=== PATIENT | male | born 1970 | race Caucasian/White ===

== ENCOUNTER 2019-02-26 10:12 | Inpatient (IN) ==
--- NOTE | 2019-02-26 10:58 | Emergency Department Note ---
ED Disposition Clinical Impression: Acute bronchitis, Cough, Unifocal PVCs, Bilateral pneumonia, Cholelithiasis Disposition: Still a Patient Condition on Discharge: Fair Referrals: Rakan Fraser [Primary Care Provider] - - Critical Care Critical Care Time: No Attestation: On 02/26/19, the high probability of a clinically significant, sudden or life threatening deterioration of the following system(s) required my full and direct attention, intervention and personal management. The time I documented below is in addition to time spent performing reported procedures but includes the following listed in this critical care notation. Medical Decision Making - Kevon Inquiry Pt receiving controlled substance: No Kevon was queried for this patient: No Vital Signs: 02/26/19 10:23 02/26/19 10:43 02/26/19 11:43 Temperature 99.3 F Temperature Source Oral Pulse Rate [Left Radial] 96 H 87 94 H Respiratory Rate 18 16 18 Blood Pressure [Right Arm] 139/84 138/82 145/76 H Blood Pressure Mean [Right Arm] 102 100 99 Blood Pressure Source [Right Arm] Automatic Cuff Automatic Cuff Automatic Cuff Blood Pressure Position [Right Arm] Sitting Sitting Sitting 02 Sat by Pulse Oximetry 94 L 93 L 94 L Oxygen Delivery Method Room Air Room Air Room Air 02/26/19 12:30 Temperature Temperature Source Pulse Rate [Left Radial] 93 H Respiratory Rate 18 Blood Pressure [Right Arm] 110/68 Blood Pressure Mean [Right Arm] 82 Blood Pressure Source [Right Arm] Automatic Cuff Blood Pressure Position [Right Arm] Sitting 02 Sat by Pulse Oximetry 94 L Oxygen Delivery Method Room Air - Lab Data Lab Results 02/26/19 10:44: WBC 11.8 H D, RBC 5.29, Hgb 15.4, Hct 48.7, MCV 92.0, MCH 29.1, MCHC 31.7 L, RDW 13.0, Plt Count 199, MPV 8.1, Neut % (Auto) 82.6 H, Lymph % (Auto) 8.6 L, [place] % (Auto) 8.1, Eos % (Auto) 0.6, Baso % (Auto) 0.1, Neut # (Auto) 9.8 H, Lymph # (Auto) 1.0, [place] # (Auto) 1.0, Eos # (Auto) 0.1, Baso # (Auto) 0.0 02/26/19 10:44: Sodium 140, Potassium 3.9, Chloride 104, Carbon Dioxide 27, Anion Gap 12.9, BUN 19 H, Creatinine 1.06, Estimated Creat Clear 83, Estimated GFR 74, Est GFR ( Amer) 89, Glucose 118 H, Calcium 8.3 L, Total Bilirubin 0.4, AST 30, ALT 55, Alkaline Phosphatase 71, Troponin I < 0.02, Total Protein 7.3, Albumin 3.6, Globulin 3.7 H, Albumin/Globulin Ratio 1.0 L 02/26/19 10:44: Magnesium 2.1 Result diagrams: 02/26/19 10:44 02/26/19 10:44 Orders (Tests/Meds): ED MEDICATIONS Generic Name Dose Route Start Last Admin Trade Name Freq PRN Reason Stop Dose Admin Levofloxacin/Dextrose 750 mg in 150 mls @ 100 mls/hr 02/26/19 12:30 Levofloxacin 750mg/150ml Premix IV 03/12/19 12:29 Q24H YVON Protocol Discontinued Medications Generic Name Dose Route Start Last Admin Trade Name Freq PRN Reason Stop Dose Admin Diatrizoate Meglum/Diatrizoate Sod 30 ml 02/26/19 10:54 02/26/19 11:03 Gastrografin 66%-10% 30ml PO 02/26/19 10:55 30 ml ONCE ONE Administration Ioversol 70 ml 02/26/19 11:52 02/26/19 11:53 Rad-Optiray 350 100ml Vial IV 02/26/19 11:53 70 ml ONCE ONE Administration Protocol Sodium Chloride 10 ml 02/26/19 11:52 02/26/19 11:52 Rad-Saline Flush 10ml Syringe IV 02/26/19 11:53 10 ml ONCE ONE Administration Sodium Chloride 50 ml 02/26/19 11:52 02/26/19 11:52 Rad-Ns 50ml Vial IV 02/26/19 11:53 50 ml ONCE ONE Administration ORDERS Category Date Time Status Lactic Acid Stat Lab 02/26/19 12:24 Ordered Blood Culture Stat Micro 02/26/19 12:24 Ordered - Radiology Data #1 Image Reviewed: Yes I discussed the image results w/the radiologist, Yes I have reviewed radiologist's interpretation Preliminary Findings: Abnormal Chest CT scan report below. IMPRESSION: 1. Bilateral lower lobe pneumonia. 2. Cholelithiasis. 3. No evidence of pulmonary embolus or aortic aneurysm - CT Data CT Scan: Abdomen, Pelvis, Chest Time Received: 12:[address] Reviewed: Yes: I discussed the CT results w/the radiologist, I have viewed the radiologist's interpretation Preliminary Findings: Abnormal Findings Narrative: Ct of the chest IMPRESSION: 1. Bilateral lower lobe pneumonia. 2. Cholelithiasis. 3. No evidence of pulmonary embolus or aortic aneurysm CT abdomen and pelvis: IMPRESSION: 1. Bilateral lower lobe pneumonia. 2. Cholelithiasis with fatty liver. 3. Small umbilical and left hernias containing fat - ECG Data Tracing #1 Normal sinus rhythm 86/min baseline artifact unifocal PVCs no acute ST segment or T wave changes. ECG initial impression date: 02/26/19 ECG initial impression time: 10:35 Medical Decision Narrative: The patient underwent a CT scan of the chest and abdomen was positive bilateral pneumonia and cholelithiasis. Will obtain blood cultures lactic acid and started IV antibiotics. 1230 I discussed the case with Dr. Joy who agreed to admit the patient. She requested a gallbladder ultrasound in a.m. Abdominal Pain HPI - General Chief Complaint: Shortness of Breath/Dyspnea Stated Complaint: Cough/Pain Time Seen by Provider: 02/26/19 10:30 Mode of Arrival: Ambulatory Limitations: No Limitations Description of Symptoms (Recalled from ER Triage Doc. by RN): to ed per pvt car pt states seen 7/4 for cough and "pulled something when coughing" dx with bronchitis given antibiotics. pt states he thinks he pulled something again while coughing now c/o burning type chest pain radiating to rt rib area and around to back. cpta antibiotics - History of Present Illness HPI narrative: 48 years old white male with no past medical history who developed coughing spells 2 days ago, the patient felt a pop in the right upper quadrant and developed sudden onset of sharp pain that is rated 6/10 without shortness of breath or hemoptysis. He was seen in the emergency room obtained labs and blood work that were within normal limit was discharged with diagnosis of bronchitis. The patient developed progressive epigastric burning sensation that is rated 10/10 worse with position, movement and activity. The patient denies having hemoptysis hematemesis coffee-ground emesis melanotic stool or bleeding per rectum. The patient continues to deny having shortness of air or hemoptysis. The patient denies having fever chills flank pain dysuria or hematuria. MD complaint: abdominal pain Onset (ago): hour(s) Consistency: constant Location: RUQ, epigastric Severity: severe Severity scale (1-10): 10 Quality: burning Radiation: none Relieving factors: rest Exacerbating factors: movement, other (Cough. ) Associated symptoms: denies other symptoms - Related Data Home Medications Medication Instructions Recorded Confirmed Benzonatate [Tessalon Perle 100mg 100 mg PO TID 02/26/19 02/26/19 Cap] levoFLOXacin [Levaquin 500mg 500 mg PO DAILY 02/26/19 02/26/19 tab] predniSONE [Prednisone 20mg 20 mg PO BID 02/26/19 02/26/19 Tab] Allergies Allergy/AdvReac Type Severity Reaction Status Date / Time No Known Allergies Allergy Verified 02/24/19 23:32 [facility] History - Hepatitis A Screen Drug use history?: No High risk sexual behaviors?: No History of sexually transmitted infection?: No Currently employed?: No Childcare worker?: No Do you have indoor plumbing?: Yes Do you have electricity?: Yes Attestation statement:: This patient has been screened for Hepatitis A risk factors. I have reviewed the patient's past medical history: Yes (ACL repair. ) - Social History Alcohol Intake: never Occupational Status: employed ROS Obtained: Yes All systems reviewed & no additional complaints Physical Exam - General General appearance: alert, in no apparent distress - Head Head exam: atraumatic, normocephalic, normal inspection - Eye Eye exam: Present: normal appearance, PERRL, EOMI. Absent: scleral icterus, nystagmus - ENT ENT exam: Present: normal exam, normal oropharynx, mucous membranes moist, TM's normal bilaterally, normal external ear exam - Neck Neck exam: Present: normal inspection, full ROM, trachea midline. Absent: tenderness, meningismus, lymphadenopathy - Chest Chest inspection: Present: normal inspection, symmetric chest wall rise, tendern ess, other (Area of maximum tenderness over right costal margin at the left anterior axillary line) - Respiratory Respiratory exam: Present: normal lung sounds bilaterally. Absent: respiratory distress, wheezes - Cardiovascular Cardiovascular exam: Present: regular rate, normal rhythm, normal heart sounds. Absent: JVD - Abdominal Exam Abdominal exam: Present: soft, tenderness, normal bowel sounds, other (Obese soft abdomen with umbilical omentocele. The area of maximum tenderness over the epigastrium and right upper quadrant with no rebound no cross tenderness no). Absent: distention, guarding, rebound, rigidity, Saunders's sign, tenderness at McBurney's Point - exam: Present: normal inspection, normal testicular lie, circumcised, other (No pulsating masses equal bilateral femoral pulsations.). Absent: testicular tenderness, urethral discharge, scrotal swelling - Extremities Exam Extremities exam: Present: normal inspection, full ROM, tenderness, normal capillary refill, pedal edema, joint swelling. Absent: calf tenderness - Back Exam Back exam: Present: normal inspection, CVA tenderness (R), CVA tenderness (L). Absent: tenderness - Neurological Exam Neurological exam: Present: alert, oriented X3, CN II-XII intact, motor sensory deficit, reflexes normal - Psychiatric Psychiatric exam: Present: normal affect, normal mood - Skin Skin exam: Present: warm, dry, intact, normal color - Lymphatic Lymphatic Findings: no adenopathy
[2019-02-26 11:01] LABS: Basophils % 0.1 % (0.1-2.0); Eosinophils # 0.1 K/mm3 (0.0-0.4); Eosinophils % 0.6 % (0.1-12.0); Hematocrit 48.7 % (42.0-52.0); Hemoglobin 15.4 g/dL (14.1-18.0); Lymphocytes % 8.6 % (10-50); Mean Corpuscular HGB Conc 31.7 g/dL (31.8-35.4); Mean Platelet Volume 8.1 fl (7.4-10.4); Monocytes % 8.1 % (1.7-9.3); Neutrophils # 9.8 K/mm3 (1.8-7.8); Neutrophils % 82.6 % (37.0-80.0); Platelet Count 199 K/mm3 (142-424); Red Blood Count 5.29 M/mm3 (4.60-6.20); White Blood Count 11.8 K/mm3 (4.8-10.8)
[2019-02-26 11:13] LABS: Alanine Aminotransferase 55 U/L (12-78); Albumin Level 3.6 gm/dL (3.4-5.0); Alkaline Phosphatase 71 U/L (46-116); Anion Gap 12.9 mEq/L (5-15); Aspartate Amino Transferase 30 U/L (15-37); Bilirubin,Total 0.4 mg/dL (0.2-1.0); Blood Urea Nitrogen 19 mg/dL (7-18); Calcium 8.3 mg/dL (8.5-10.1); Carbon Dioxide 27 mmol/L (21.0-32.0); Chloride 104 mmol/L (98-107); Globulin 3.7 gm/dl (1.3-3.2); Glucose 118 mg/dL (74-106); Sodium 140 mmol/L (136-145); Total Protein,Serum 7.3 gm/dL (6.4-8.2)
--- NOTE | 2019-02-26 14:38 | Pharmacy Consult Notes ---
[facility] Pharmacy VTE Monitoring - Patient Demographics Admission date: 02/26/19 Report Date: 02/26/19 Time: 14:38 Allergies/Adverse Reactions: Patient Allergies No Known Allergies Allergy (Verified 02/24/19 23:32) Height: 1.75 m Weight: 127.006 kg Patient Problems: Current Active Problems (Updated 02/26/19 @ 12:23 by Casey Aguilera MD) Acute bronchitis (Acute) Cough (Acute) Unifocal PVCs (Acute) Bilateral pneumonia (Acute) Cholelithiasis (Acute) - VTE Risk Labs: VTE Related Lab Results Hgb 15.4 g/dL (14.1-18.0) 02/26/19 10:44 Hct 48.7 % (42.0-52.0) 02/26/19 10:44 Plt Count 199 K/mm3 (142-424) 02/26/19 10:44 BUN 19 mg/dL (7-18) H 02/26/19 10:44 Creatinine 1.06 mg/dL (0.70-1.30) 02/26/19 10:44 Estimated Creat Clear 83 mL/min (50-200) 02/26/19 10:44 Was VTE Risk Assessment Performed: Yes VTE Score: 3 VTE Risk Level: Low Risk - Prophylaxis VTE Prophylaxis Ordered?: Yes Types of VTE Prophylaxis: TEDS Knee High Location of Applied Device: Bilateral Lower Extremeties
[2019-02-27 06:57] LABS: Basophils % 0.4 % (0.1-2.0); Eosinophils % 0.2 % (0.1-12.0); Hematocrit 44.4 % (42.0-52.0); Hemoglobin 14.2 g/dL (14.1-18.0); Lymphocytes # 1.5 K/mm3 (0.7-4.5); Lymphocytes % 20.2 % (10-50); Mean Corpuscular Volume 91.2 fl (80-94); Mean Platelet Volume 7.8 fl (7.4-10.4); Monocytes # 0.7 K/mm3 (0.1-1.0); Monocytes % 9.1 % (1.7-9.3); Neutrophils # 5.3 K/mm3 (1.8-7.8); Neutrophils % 70.1 % (37.0-80.0); Platelet Count 172 K/mm3 (142-424); Red Blood Count 4.87 M/mm3 (4.60-6.20); Red Cell Distribution Width 13.2 % (11.5-17.5); White Blood Count 7.5 K/mm3 (4.8-10.8)
[2019-02-27 07:03] LABS: Anion Gap 10.2 mEq/L (5-15)
--- NOTE | 2019-02-27 12:16 | History & Physical Report ---
*Admission Date: 02/26/19 *Chief complaint: Difficulty breathing and pleuritic pain in chest *History of present illness: Patient is a 48-year-old male who presented to our ED with some pleuritic pain and chest. He denies having any sputum production. He was also complaining of some epigastric and lower thoracic pain that comes and goes. Denies having fever, chills, nausea, vomiting, diarrhea. Work-up in the ED showed bilateral pneumonia and gallstones. Ultrasound was ordered to rule out any stones in the common bile duct or pancreatic duct. He was started on antibiotic treatment for bilateral pneumonia. Today during rounds, he seemed to be doing slightly better. He complained that the neb treatments are making him dizzy. [facility] History I have reviewed the patient's past medical history: Yes 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: Denies:: Cancer, Diabetes Mellitus Type 1, Diabetes Mellitus Type 2, Internal Pacemaker, MRSA *Have you ever received a pneumonia vaccine?: Yes *Have you received a flu vaccine this season?: Yes Laterality Cases: Left: ACL Repair Other Surgeries: No: Pacemaker Amputation: No Fractures: No - *Social History Educational Level: Completed College Smoking Status: Never smoker Alcohol Intake: never *Occupational Status:: employed Housing: house Household Members: spouse *Travel in the last 8 weeks: None - Psychiatric History Expresses thoughts of harming self/others: None Suicide Plan Description: No Plan Family Hx:: Diabetes, Hyperlipidemia, Hypertension Review of Systems - Constitutional Reports lack of energy, Reports weakness - Eyes Denies change in vision - ENT Denies change in voice, Denies difficulty swallowing - *Cardiovascular Denies chest pain, Denies chest pain at rest, Denies chest pain with activity, Denies shortness of breath - *Respiratory Reports chest congestion, Reports cough, Denies shortness of breath - *Gastrointestinal Denies bloating, Denies change in bowel habits Comments: Mild epigastric pain - *Genitourinary Denies difficulty with ejaculations - *Musculoskeletal Denies joint pain, Denies decreased muscle mass - Integumentary/Breasts Denies bleeding lesions - *Neurologic Denies abnormal hearing - Psychiatric Denies lack of enjoyment, Denies anxiety, Denies depression - Allergic/Immunologic Denies itchy eyes Meds Home Medications Medication Instructions Recorded Confirmed Type Benzonatate [Tessalon Perle 100mg 100 mg PO TID 02/26/19 02/26/19 History Cap] levoFLOXacin [Levaquin 500mg 500 mg PO DAILY 02/26/19 02/26/19 History tab] predniSONE [Prednisone 20mg 20 mg PO BID 02/26/19 02/26/19 History Tab] Allergies Allergy/AdvReac Type Severity Reaction Status Date / Time No Known Allergies Allergy Verified 02/24/19 23:32 Exam Vital signs and Labs for Last 24 Hours: Temp Pulse Resp BP Pulse Ox 98.9 F 72 19 115/63 94 L 02/27/19 08:00 02/27/19 08:00 02/27/19 08:00 02/27/19 08:00 02/27/19 08:40 Laboratory Results - last 24 hr 02/26/19 12:45: Lactate 1.0 02/26/19 15:55: Troponin I < 0.02 02/26/19 22:00: Troponin I < 0.02 02/27/19 06:33: WBC 7.5 D, RBC 4.87, Hgb 14.2, Hct 44.4, MCV 91.2, MCH 29.2, MCHC 32.0, RDW 13.2, Plt Count 172, MPV 7.8, Neut % (Auto) 70.1, Lymph % (Auto) 20.2, [place] % (Auto) 9.1, Eos % (Auto) 0.2, Baso % (Auto) 0.4, Neut # (Auto) 5.3, Lymph # (Auto) 1.5, [place] # (Auto) 0.7, Eos # (Auto) 0.0, Baso # (Auto) 0.0 02/27/19 06:33: Sodium 138, Potassium 3.2 L, Chloride 102, Carbon Dioxide 29, Anion Gap 10.2, BUN 18, Creatinine 1.05, Estimated Creat Clear 84, Estimated GFR 75, Est GFR ( Amer) 90, Glucose 114 H, Calcium 8.0 L I & O for Last 24 hours: Intake & Output 02/25/19 02/26/19 02/27/19 02/28/19 11:59 11:59 11:59 11:59 Intake Total 1558 / 1558 Balance 1558 / 1558 Weight 280 lb 287 lb 0.67 oz Microbiology Reports for the Last 24 Hours: Microbiology 02/26/19 17:10 Sputum - Expectorated Sputum Gram Stain - Final - *Routine HEENT Exam Head: Present: normocephalic Eye: Present: EOMI, PERRL ENT: Present: mucous membranes moist - *Routine Neck Exam Present: supple. Absent: lymphadenopathy - *Routine Respiratory Exam Present: wheezes Comments: Diffuse and bilateral - *Routine Cardiovascular Exam Present: RRR - *Routine Abdominal Exam Present: soft, normoactive bowel sounds. Absent: tenderness - *Routine Extremities Exam Absent: cyanosis, clubbing, edema - *Routine Skin Exam Present: warm. Absent: rash - *Routine Neurological Exam Present: alert, oriented X3 Assessment and Plan (1) Bilateral pneumonia Current visit: Yes Status: Acute Category: Medical Code(s): J18.9 - Pneumonia, unspecified organism (2) Acute bronchitis Current visit: Yes Status: Acute Category: Medical Code(s): J20.9 - Acute bronchitis, unspecified (3) Cholelithiasis Current visit: Yes Status: Acute Category: Medical Code(s): K80.20 - Calculus of gallbladder without cholecystitis without obstruction - Assessment and plan all Dx Assessment and Plan for all problems:: Evaluate gallstones are outpatient. Explained that given his pneumonia he is not a good candidate for any surgery at this time. He voiced understanding. We will continue IV antibiotics for his bilateral pneumonia. Await blood cultures. Possible discharge tomorrow or Thursday.
--- NOTE | 2019-02-28 08:26 | Progress Note ---
<Akanksha Aguirre - Last Filed: 02/28/19 08:23> Internal Medicine - PN: Subj *Date: 02/28/19 *Time: 08:23 Interval history: States he is better today. Denies shortness of breath. He has minimal cough. He states pain is much improved. He is eating without difficulty. He is voiding QS. He ambulates in the room without problems. Pending cultures Exam Vital signs and Labs for Last 24 Hours: Temp Pulse Resp BP Pulse Ox 98.1 F 91 H 17 121/68 93 L 02/28/19 07:57 02/28/19 07:57 02/28/19 07:57 02/28/19 07:57 02/28/19 07:57 I & O for Last 24 hours: Intake & Output 02/25/19 02/26/19 02/27/19 02/28/19 11:59 11:59 11:59 11:59 Intake Total 1558 / 1558 1930 Balance 1558 / 1558 1930 Weight 280 lb 287 lb 0.67 oz 280 lb 3 oz Microbiology Reports for the Last 24 Hours: Microbiology 02/26/19 17:10 Sputum - Expectorated Sputum Gram Stain - Final 02/26/19 17:10 Sputum - Expectorated Sputum Sputum Culture - Preliminary - Constitutional no acute distress Comments: Sitting in chair in the room and appears very comfortable. - *Routine Respiratory Exam Comments: Bilateral crackles - *Routine Cardiovascular Exam Present: RRR - *Routine Abdominal Exam Present: soft, normoactive bowel sounds. Absent: tenderness, distended - *Routine Extremities Exam Absent: edema, calf tenderness - *Routine Neurological Exam Present: alert, oriented X3 Assessment and Plan (1) Bilateral pneumonia Current visit: Yes Status: Acute Category: Medical Code(s): J18.9 - Pneumonia, unspecified organism (2) Acute bronchitis Current visit: Yes Status: Acute Category: Medical Code(s): J20.9 - Acute bronchitis, unspecified (3) Cholelithiasis Current visit: Yes Status: Acute Category: Medical Code(s): K80.20 - Calculus of gallbladder without cholecystitis without obstruction - Assessment and plan all Dx Assessment and Plan for all problems:: Continue with current care. <Cecy Joy - Last Filed: 02/28/19 09:41> Internal Medicine - PN: Subj *Date: 02/28/19 *Time: 09:41 Exam Vital signs and Labs for Last 24 Hours: Temp Pulse Resp BP Pulse Ox 98.1 F 91 H 17 121/68 93 L 02/28/19 07:57 02/28/19 07:57 02/28/19 07:57 02/28/19 07:57 02/28/19 07:57 I & O for Last 24 hours: Intake & Output 02/25/19 02/26/19 02/27/19 02/28/19 11:59 11:59 11:59 11:59 Intake Total 1558 / 1558 1930 Balance 1558 / 1558 1930 Weight 280 lb 287 lb 0.67 oz 280 lb 3 oz Microbiology Reports for the Last 24 Hours: Microbiology 02/26/19 17:10 Sputum - Expectorated Sputum Gram Stain - Final 02/26/19 17:10 Sputum - Expectorated Sputum Sputum Culture - Preliminary Assessment and Plan (1) Bilateral pneumonia Current visit: Yes Status: Acute Category: Medical Code(s): J18.9 - Pneumonia, unspecified organism (2) Acute bronchitis Current visit: Yes Status: Acute Category: Medical Code(s): J20.9 - Acute bronchitis, unspecified (3) Cholelithiasis Current visit: Yes Status: Acute Category: Medical Code(s): K80.20 - Calculus of gallbladder without cholecystitis without obstruction - Assessment and plan all Dx Assessment and Plan for all problems:: Discharged today.
--- NOTE | 2019-02-28 14:34 | Discharge Summary ---
General - General Admission date:: 02/26/19 Discharge date: 02/28/19 HPI HPI: Patient is a 48-year-old male who presented to our ED with some pleuritic pain and chest. He denies having any sputum production. He was also complaining of some epigastric and lower thoracic pain that comes and goes. Denies having fever, chills, nausea, vomiting, diarrhea. Work-up in the ED showed bilateral pneumonia and gallstones. Ultrasound was ordered to rule out any stones in the common bile duct or pancreatic duct. He was started on antibiotic treatment for bilateral pneumonia. Today during rounds, he seemed to be doing slightly better. He complained that the neb treatments are making him dizzy. Hospital Course Hospital Course: The patient's CTA showed bilateral pneumonia and cholelithiasis. It did not show a PE. He had a CT of the abdomen and pelvis which also showed bilateral lower lobe pneumonia and cholelithiasis with fatty liver. There was also a small umbilical hernia and left hernia containing fat. He was admitted and started on IV antibiotics. An ultrasound was ordered of his right upper quadrant. This showed cholelithiasis with fatty liver, but there was no gallbladder wall thickening, pericholecystic fluid, or biliary dilatation. The patient was not a good candidate for surgery due to his pneumonia. His symptoms did improve throughout his stay. His shortness of breath resolved and his pain was much better. He was able to eat without difficulty and ambulate around his room. His blood cultures showed no growth and his sputum culture is still pending. He was stable to be discharged home on continued antibiotics. He will follow-up with Dr. Joy on an outpatient basis. Will review final sputum results at that time and may need to plan for outpatient cholecystectomy. Objective Vital signs: Temp Pulse Resp BP Pulse Ox 98.1 F 91 H 17 121/68 93 L 02/28/19 07:57 02/28/19 07:57 02/28/19 07:57 02/28/19 07:57 02/28/19 07:57 Narrative: - *Routine HEENT Exam Head: Present: normocephalic Eye: Present: EOMI, PERRL ENT: Present: mucous membranes moist - *Routine Neck Exam Present: supple. Absent: lymphadenopathy - *Routine Respiratory Exam Present: wheezes Comments: Diffuse and bilateral - *Routine Cardiovascular Exam Present: RRR - *Routine Abdominal Exam Present: soft, normoactive bowel sounds. Absent: tenderness - *Routine Extremities Exam Absent: cyanosis, clubbing, edema - *Routine Skin Exam Present: warm. Absent: rash - *Routine Neurological Exam Present: alert, oriented X3 Results Labs on day of discharge: Preliminary micro results at discharge 02/26/19 12:45 Blood Culture - Preliminary Blood NO GROWTH AFTER 48 HOURS 02/26/19 12:45 Blood Culture - Preliminary Blood NO GROWTH AFTER 48 HOURS 02/26/19 17:10 Sputum Culture - Preliminary Sputum - Expectorated Sputum DS: Diagnosis - Discharge Diagnosis (1) Bilateral pneumonia Status: Acute (2) Acute bronchitis Status: Acute (3) Cholelithiasis Status: Acute Discharge Plan - Patient Discharge Instructions ACTIVITY: Continue current activity DIET: continue same diet Additional Instructions: work excuse until this thursday Patient Instructions: Premature Ventricular Beats, DI for Pneumonia -- Adult - Follow up Plan Follow up with: Cecy Joy MD [Staff Physician] - 03/07/19 11:00 am Unknown provider or service follow up:: 02/28/19 09:35 his PCP in 1 week Disposition: Home, Self-Fdc Medications: Home Medications Medication Instructions Recorded Confirmed Type Albuterol Sulfate [Proair Hfa 2 puffs IH Q4HP PRN #1 inh 02/28/19 Rx 90mcg/puff Inh] Benzonatate [Tessalon Perle 100mg 100 mg PO TID #21 cap 02/28/19 Rx Cap] Ondansetron HCl [Zofran 4mg Tab] 4 mg PO Q6HP PRN #21 tab 02/28/19 Rx levoFLOXacin [Levaquin 750mg 750 mg PO DAILY #5 tab 02/28/19 Rx tablet] Prescriptions/Medication Reconciliation: New Albuterol Sulfate [Proair Hfa 90mcg/puff Inh] 2 puffs IH Q4HP PRN #1 inh PRN Reason: Shortness Of Breath Or Wheezing Ondansetron HCl [Zofran 4mg Tab] 4 mg PO Q6HP PRN #21 tab PRN Reason: Nausea levoFLOXacin [Levaquin 750mg tablet] 750 mg PO DAILY #5 tab Continued Benzonatate [Tessalon Perle 100mg Cap] 100 mg PO TID #21 cap Discontinued predniSONE [Prednisone 20mg Tab] 20 mg PO BID levoFLOXacin [Levaquin 500mg tab] 500 mg PO DAILY
== END 2019-02-28 10:48 | disposition home or self-care (01) | DRG 195 ==
LOC: ER 10:12 → 2ND 10:12 → OBSVTOIN 14:23 → 2ND 14:24
PROVIDERS: ADMIT Emergency Medicine; ATTEND Emergency Medicine
CPT/HCPCS: 36415; 71275; 74177; 76705; 80048; 80053; 83605; 83735; 84484; 85025; 87040; 87070; 87205; 93005; 94640; 94761; 96365; 99285; J1956; J2405; Q9967

== ENCOUNTER → 2020-06-17 17:08 | Outpatient (CLI) | payer BC, SELFPAY | PROVIDERS: PCP Family Medicine; Visit Provider Family Medicine | DX: Z03.818 Encounter for observation for suspected exposure to other biological agents ruled out (principal) | CPT/HCPCS: U0003 ==

== ENCOUNTER 2020-07-22 10:25 | Emergency (ER) | payer BC, SELFPAY ==
[2020-07-22 11:03] VITALS: BP 141/86; PULSE 82; RESP 18; TEMP 36.9; O2SAT 98; BMI 39.1
--- NOTE | 2020-07-22 11:08 | HMH.EDUTC ---
[facility] [place] Clinical Impression: Cough Disposition: Home, Self-Care Condition on Discharge: Good Instructions: DI for Cough -- Adult Additional Instructions: You have been tested for COVID19. These results should be available in 24-48 hours. You can call your PCP office for these results. Prescriptions: Benzonatate [Tessalon Perle 100mg Cap*] 100 mg PO TID PRN 10 Days #30 cap PRN Reason: Cough Transmission Status: Pending to Serviceful # Azithromycin [Zithromax 250mg tab] 250 mg PO DIRECTED #6 tab Transmission Status: Pending to Serviceful # Referrals: Nithin Fraser MD [Primary Care Provider] - Time of Disposition: 11:20 Medical Decision Making - Kevon Inquiry Pt receiving controlled substance: No Vital Signs: 07/22/20 11:03 Temperature 98.4 F Temperature Source Oral Pulse Rate [Radial] 82 Respiratory Rate 18 Blood Pressure [Right Arm] 141/86 H Blood Pressure Mean [Right Arm] 104 Blood Pressure Source [Right Arm] Automatic Cuff Blood Pressure Position [Right Arm] Sitting 02 Sat by Pulse Oximetry 98 Oxygen Delivery Method Room Air Orders (Tests/Meds): ORDERS Category Date Time Status Covid-19 Nasal PCR Sendout [facility] 07/22/20 10:55 Received [facility] [place] H[place] - General Stated complaint: Sore throat, body aches Time Seen by Provider: 07/22/20 11:08 Mode of Arrival: Ambulatory Source of Information: Patient Limitations: No Limitations Description of Symptoms (Recalled from Triage Doc. by RN): coughing, body aches x 3 days HEENT Symptoms (Recalled from RN notes): Yes Resp Symptoms (Recalled from RN notes): No Skin Symptoms (Recalled from RN notes): No MS Symptoms (Recalled from RN notes): No Functional Status (Recalled from RN notes): wnl - History of Present Illness Provider Complaint: Cough, body aches, chills X 2-3 days. No fever. Denies ear pain, sore throat, loss of taste or smell, vomiting or diarrhea. No known exposure to COVID19. Onset (ago): day(s) (3) Location: head Relieving factors: none Exacerbating factors: none Associated symptoms: cough Treatments prior to arrival: none - Related Data Home Medications Medication Instructions Recorded Confirmed ibuprofen 400 mg tablet 400 mg PO Q6H 05/10/19 05/10/19 Previous Rx's Medication Instructions Recorded Hydrocod/Acet 5/325 mg [[place] 1 - 2 tab PO Q6HP PRN #23 tab 04/29/19 5/325mg tablet] Azithromycin [Zithromax 250mg tab] 250 mg PO DIRECTED #6 tab 07/22/20 Benzonatate [Tessalon Perle 100mg 100 mg PO TID PRN 10 Days #30 cap 07/22/20 Cap*] Allergies Allergy/AdvReac Type Severity Reaction Status Date / Time No Known Allergies Allergy Verified 05/10/19 10:03 - Worker's Comp Is this a Worker's Comp case?: No [facility] History - Hepatitis A Screen Drug use history?: No High risk sexual behaviors?: No History of sexually transmitted infection?: No Currently employed?: No Childcare worker?: No Do you have indoor plumbing?: Yes Do you have electricity?: Yes Attestation statement:: This patient has been screened for Hepatitis A risk factors. I have reviewed the patient's past medical history: Yes 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: Denies:: Cancer, Diabetes Mellitus Type 1, Diabetes Mellitus Type 2, Internal Pacemaker, MRSA, Seizures Other 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: Denies: Blood Transfusion Reaction Laterality Cases: Left: ACL Repair, Right: Other Other Surgeries: Yes: Cholecystectomy, Colonoscopy, Hernia Repair, Other. No: Pacemaker Amputation: No Fractures: No Comment: mole excision - Social History Smoking Status: Never smoker Alcohol Intake: never Substance Use Type: denies use Occupational Status: employed Housing: house Household Members: spouse Family Hx:: Diabetes, Hyperlipidemia, Hypertension ROS Obtained: Yes All systems reviewed & no additional complaints - Constitutional Constitutional: Reports body ache, Reports chills, Denies fever(s), Reports malaise
[2020-07-22 11:39] VITALS: BP 141/86; PULSE 82; RESP 18; TEMP 36.9; O2SAT 98
[2020-07-22 12:25] LABS: UTC Influenza A Antigen Negative (Negative); UTC Strep Screen (Rapid) Negative (Negative)
[2020-07-22 12:26] LABS: UTC Influenza B Antigen Negative (Negative)
[2020-07-23 10:15] LABS: Covid-19 Nasal PCR Sendout UK DETECTED
--- NOTE | 2020-07-23 11:53 | PC.NURSE ---
PATIENT NOTIFIED OF POSITIVE COVID RESULTS
== END 2020-07-22 11:40 | disposition home or self-care (01) ==
PROVIDERS: Emergency Provider Physician Assistant; PCP Family Medicine
DX: U07.1 COVID-19 (principal)
CPT/HCPCS: 87804; 87880; 99202; U0003

== ENCOUNTER → 2020-09-11 15:48 | Outpatient (CLI) | payer BC, SELFPAY ==
[2020-09-11 18:02] LABS: Coronavirus 19 IgG Antibody Positive (Negative); Coronavirus 19 IgM Antibody Negative (Negative)
== END ==
PROVIDERS: Visit Provider Surgery
DX: Z01.812 Encounter for preprocedural laboratory examination (principal); Z86.16 Personal history of COVID-19; Z12.11 Encounter for screening for malignant neoplasm of colon
CPT/HCPCS: 36415; 86328

== ENCOUNTER 2020-09-13 07:55 | Day surgery (SDC) | payer BC, SELFPAY ==
[2020-09-11 10:12] VITALS: BMI 41.9
[2020-09-13 08:17] VITALS: BP 147/73; PULSE 77; RESP 20; TEMP 36.3; O2SAT 95
[2020-09-13 08:56] VITALS: O2SAT 95
--- NOTE | 2020-09-13 08:57 | P.PN_ITS ---
[facility] Anesthesia Checklist - Structural Data Admitted From: Home Planned Operative Procedure/s: colonoscopy Consent for Planned Operative Procedure(s) Verified: Yes - Additional verifications Anesthesia Reactions: No Hx Blood Transfusions: No Blood Transfusion Reaction: No - Airway Assessment C-Spine Mobility Assessed: Yes TMJ Mobility Assessed: Yes Dentition: Poor Dentition - Neurological Assessment Level of Consciousness: Awake, Alert, Appropriate - Anesthesia Plan Anesthesia Risk discussed: Yes Anesthesia Plan: Verified ASA Class: III Anesthesia Type: MAC [facility] History I have reviewed the patient's past medical history: Yes 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: Denies:: Cancer, Diabetes Mellitus Type 1, Diabetes Mellitus Type 2, Internal Pacemaker, MRSA, Seizures *Have you ever received a pneumonia vaccine?: No *Have you received a flu vaccine this season?: No Other 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: Denies: Blood Transfusion Reaction Anesthesia experience/problems:: none Laterality Cases: Left: ACL Repair, Right: Other Other Surgeries: Yes: Cholecystectomy, Colonoscopy, Hernia Repair, Other. No: Pacemaker Amputation: No Fractures: No - *Social History Last grade of school completed: High school graduate Smoking Status: Never smoker Alcohol Intake: current Alcohol Intake Frequency:: holidays/special occasions only Substance Use Type: denies use *Occupational Status:: employed Housing: house Household Members: spouse *Travel in the last 8 weeks: None Family Hx:: Diabetes, Hyperlipidemia, Hypertension
--- NOTE | 2020-09-13 09:39 | HMH.SCOPE ---
- Procedure: Date: 09/13/20 Patient Date of :: 1970 Procedure Performed:: Colonoscopy with polypectomy Indications:: Screening Performing Provider:: Alexander Coffey MD Referring Provider:: Dr. Fraser Sedation:: Monitored anesthesia care Procedure:: After informed consent was obtained the patient was taken to the endoscopy suite. Sedation ensued after the patient was transferred to the left lateral decubitus position. Pulse, blood pressure, and oxygen saturation were monitored throughout the procedure. Digital rectal exam revealed no significant abnormality. The colonoscope was placed in position. The entire colon was evaluated. The colonoscope was carefully removed and the patient was transferred to recovery in stable condition. Please see findings and specimens below for detail. Findings:: Bowel preparation moderate Fairly significant lack of relaxation Hemorrhoidal cushions Multiple polyps (see specimens) Specimens:: Adjacent right colon polyps Large complex cecal polyp (snare) Polyp at 40 cm Recommendations:: Timing of repeat colonoscopy is pending pathology but will likely be between 2-3 years secondary to size/nature of cecal polyp, lack of relaxation, and moderate bowel preparation. Complications:: No immediate Estimated blood obtained (mL): 1
[2020-09-13 09:40] VITALS: BP 116/87; PULSE 103; RESP 18; TEMP 36.7; O2SAT 91
[2020-09-13 09:50] VITALS: BP 138/87; PULSE 89; RESP 18; O2SAT 95
[2020-09-13 09:59] VITALS: BP 122/72; PULSE 75; RESP 18; O2SAT 95
[2020-09-13 10:08] VITALS: BP 118/64; PULSE 76; RESP 18; O2SAT 95
== END 2020-09-13 10:16 | disposition home or self-care (01) ==
LOC: OUTP 07:57
PROVIDERS: PCP Family Medicine; Visit Provider Surgery
PROC: 0DJD8ZZ Inspection of Lower Intestinal Tract, Via Natural or Artificial Opening Endoscopic (ICD-10-PCS; CPT 45385; principal; 2020-09-13 09:00)
DX: Z12.11 Encounter for screening for malignant neoplasm of colon (principal); K63.5 Polyp of colon; K64.0 First degree hemorrhoids; Z90.49 Acquired absence of other specified parts of digestive tract
CPT/HCPCS: 45385; 45380

== ENCOUNTER 2023-10-20 08:24 | Day surgery (SDC) | payer BC, SELFPAY ==
[2023-10-20 08:51] VITALS: BP 145/84; PULSE 73; RESP 18; TEMP 37.1; O2SAT 96; BMI 34.2
[2023-10-20] MEDS: LACTATED RINGERS 1000ML 1,000 ML 25 ML IV (08:51)
[2023-10-20 09:03] LABS: POC Glucose,Bedside 97 (70-110)
--- NOTE | 2023-10-20 09:09 | P.PCN_ITS ---
Procedure: Date: 10/20/23 Patient Date of :: 1970 Procedure Performed:: Colonoscopy Indications:: History of colon polyps Note: Colonoscopy in August 2020 was somewhat complicated by moderate bowel pr eparation and poor relaxation. Hemorrhoids noted. Adjacent adenomas of the right colon were excised. A large complex cecal adenoma was also excised. Performing Provider:: Alexander Coffey MD Referring Provider:: . Sedation:: Monitored anesthesia care Procedure:: After informed consent was obtained the patient was taken to the endoscopy suite. Sedation ensued after the patient was transferred to the left lateral decubitus position. Pulse, blood pressure, and oxygen saturation were monitored throughout the procedure. Digital rectal exam revealed no significant abnormality. The colonoscope was placed in position. The entire colon was evaluated. The colonoscope was carefully removed and the patient was transferred to recovery in stable condition. Please see findings and specimens below for detail. Findings:: Bowel preparation relatively fair Moderate spasticity/lack of relaxation Moderate tortuosity Specimens:: None Recommendations:: Repeat colonoscopy in 3-5 years secondary to history of large complex polyps, spasticity/lack of relaxation, and tortuosity. Complications:: No immediate Estimated blood obtained (mL): 0 Colonoscopy Component Colonoscopy Component Was a colonoscopy performed during today's procedure?: Yes Recommended follow up colonoscopy of at least 10 years?: No If no, follow up colonoscopy recommended in ___ years?: (See above) Reason for not recommending >/= 10 yr follow-up interval?: (See above)
--- NOTE | 2023-10-20 09:10 | P.PNANES_ITS ---
[facility] Disclaimer: The information contained in this section may have been updated after the patient was seen, as this information can be updated by other users. 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 Diabetes mellitus, type 2 Surgical History History of cholecystectomy History of repair of ACL Family History Other No significant family history Social History Smoking Status: Never smoker second hand exposure: No alcohol intake: current substance use type: denies use current occupational status: employed Travel in the last 8 weeks: None household members: spouse housing: house current occupation: [employer] current occupational exposures/hazards: No caffeine: No [facility] Anesthesia Checklist Patient Identification Patient Identification: Arm Band and Verbal (Name & ) Structural Data Admitted From: Home Planned Operative Procedure/s: Colonoscopy Consent for Planned Operative Procedure(s) Verified: Yes NPO Status Verified Time NPO: 00:00 Additional verifications Anesthesia Reactions: No Hx Blood Transfusions: No Blood Transfusion Reaction: No Airway Assessment Mallampati Score:: Class II C-Spine Mobility Assessed: Yes TMJ Mobility Assessed: Yes Dentition: Good Dentition Neurological Assessment Level of Consciousness: Awake Hx Seizures: No Numbness or tingling in extremities: No Anesthesia Plan Anesthesia Risk discussed: Yes Anesthesia Plan: Verified ASA Class: II Anesthesia Type: MAC
[2023-10-20 09:14] VITALS: O2SAT 96
[2023-10-20 09:47] VITALS: BP 110/70; PULSE 85; RESP 16; TEMP 36.8; O2SAT 92
[2023-10-20 09:51] VITALS: BP 119/74; PULSE 84; RESP 16; O2SAT 96
[2023-10-20 09:59] VITALS: BP 122/77; PULSE 86; RESP 16; O2SAT 98
== END 2023-10-20 10:05 | disposition home or self-care (01) ==
PROVIDERS: PCP Nurse Practitioner Family; Visit Provider Surgery
PROC: 0DJD8ZZ Inspection of Lower Intestinal Tract, Via Natural or Artificial Opening Endoscopic (ICD-10-PCS; CPT 45378; principal; 2023-10-20 09:30)
DX: Z12.11 Encounter for screening for malignant neoplasm of colon (principal); Z86.010 Personal history of colon polyps; E11.9 Type 2 diabetes mellitus without complications
CPT/HCPCS: 45378; 82962; J2704

== ENCOUNTER 2024-05-07 12:17 | Emergency (ER) | payer BC, SELFPAY ==
[2024-05-07 12:25] VITALS: BP 140/91; PULSE 73; RESP 20; TEMP 36.4; O2SAT 99; BMI 35.4
--- NOTE | 2024-05-07 12:43 | ED_ITS ---
Discharge Plan Disposition Patient Disposition: Home, Self-Care Condition: Good Prescriptions Prescriptions: New cephalexin 500 mg tablet 500 mg PO BID 7 Days Qty: 14 0RF mupirocin 2 % ointment 1 applic topical BID 7 Days Qty: 15 0RF No Action Ozempic 2 mg/dose (8 mg/3 mL) Pen Injector 2 mg SQ WEEKLY Referrals Follow up/Referrals: Kevin Mccormack APRN [Primary Care Provider] - See instructions Activity Restrictions/Add. Instructions Additional Instructions/Restrictions: Follow-up with primary care If worsening or no improvement return Monitor for fever Tylenol and ibuprofen as needed for pain Antibiotics as ordered Clinical Impressions Clinical Impression: Cellulitis and abscess of finger, unspecified Instructions Patient Instructions: Cellulitis Print Language Print Language: Estonian Discharge ED Provider: Ksenia ([facility])Kevin [facility] [place] HPI General Stated complaint: splinters RT thumb Mode of Arrival: Ambulatory Source of Information: Patient Limitations: No Limitations Time Seen by Provider: 05/07/24 12:43 Description of Symptoms (Recalled from Triage Doc. by RN): PATIENT C/O SPLINTERS TO RIGHT THUMB SINCE THURSDAY HEENT Symptoms (Recalled from RN notes): No Resp Symptoms (Recalled from RN notes): No Skin Symptoms (Recalled from RN notes): Yes MS Symptoms (Recalled from RN notes): No Functional Status (Recalled from RN notes): WNL History of Present Illness Provider Complaint: 53-year-old male states that on Thursday he was working with some boards and got some splinters in his thumbs and pulled amount and over the last couple days he has noticed his right thumb is red swollen and warm to touch. Related Data Home Medications ?Medication ?Instructions ?Recorded ?Confirmed semaglutide 2 mg/dose (8 mg/3 mL) 2 mg SQ WEEKLY 10/16/23 05/07/24 subcutaneous pen injector (Ozempic) Previous Rx's ?Medication ?Instructions ?Recorded cephalexin 500 mg tablet 500 mg PO BID 7 days #14 tabs 05/07/24 mupirocin 2 % topical ointment 1 applic topical BID 7 days #15 05/07/24 grams Allergies Allergy/AdvReac Type Severity Reaction Status Date / Time No Known Allergies Allergy Verified 10/20/23 08:50 Worker's Comp Is this a Worker's Comp case?: No [facility] Disclaimer: The information contained in this section may have been updated after the patient was seen, as this information can be updated by other users. 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) Smoking Status: Never smoker second hand exposure: No alcohol intake: current alcohol intake frequency: holidays/special occasions only substance use type: denies use current occupational status: employed Travel in the last 8 weeks: None household members: spouse housing: house current occupation: [email or web address] current occupational exposures/hazards: No caffeine: No ROS Obtained: Yes Systems reviewed as appropriate & no additional complaints except as documented Physical Exam General General appearance: alert and in no apparent distress ENT ENT exam: Present normal exam Respiratory Respiratory exam: Present normal lung sounds bilaterally Cardiovascular Cardiovascular exam: Present regular rate and normal rhythm Expanded Upper Extremity Exam Right: Hand L/R front image: 2 1. other (Redness) 2. other (Small scabbed areas with redness) 3. other (Scabbed area with redness) 4. other (Swelling) Neurological Exam Neurological exam: Present alert and oriented X3 Skin Skin exam: Present warm Medical Decision Making Medical Records Medical records reviewed: Yes I reviewed the patient's medical records. Kevon Inquiry Pt receiving controlled substance: No Kevon was queried for this patient: No Vital Signs: 05/07/24 12:25 Temperature 97.5 F L Temperature Source Oral Pulse Rate [Left Brachial] 73 Respiratory Rate 20 Blood Pressure [Left Arm] 140/91 H Blood Pressure Mean [Left Arm] 107 Blood Pressure Source [Left Arm] Automatic Cuff Blood Pressure Position [Left Arm] Sitting 02 Sat by Pulse Oximetry 99 Oxygen Delivery Method Room Air
--- NOTE | 2024-05-07 12:43 | XR_ITS ---
PROCEDURE INFORMATION: Exam: XR Right Hand Exam date and time: 05/07/2024 12:41 PM Age: 53 years old Clinical indication: Injury or trauma; Other: Splinter; Puncture; Hand; Right; Additional info: Foreign body in thumb TECHNIQUE: Imaging protocol: Radiologic exam of the right hand. Views: 3 or more views. COMPARISON: No relevant prior studies available. FINDINGS: Bones/joints: No visible acute fracture or dislocation. Healed 5th metacarpal neck. Soft tissues: No radiopaque foreign body. Minimal subcutaneous air along the volar aspect of the thumb. IMPRESSION: 1. No visible acute fracture or dislocation. 2. No radiopaque foreign body. Minimal subcutaneous air along the volar aspect of the thumb.
[2024-05-07 13:29] VITALS: BP 140/91; PULSE 73; RESP 20; TEMP 36.4; O2SAT 99
== END 2024-05-07 13:33 | disposition home or self-care (01) ==
PROVIDERS: Emergency Provider Nurse Practitioner Family; PCP Nurse Practitioner Family
DX: L02.511 Cutaneous abscess of right hand (principal); L03.011 Cellulitis of right finger
CPT/HCPCS: 73130; 99204; 99212; G0463